=== PATIENT | male | born 1950 | race Caucasian/White ===

== ENCOUNTER 2024-09-23 12:36 | Outpatient (CLI) | payer OTHER, SELFPAY | END 2024-09-23 12:37 | disposition home or self-care (01) | LOC: WOUND 12:40 | PROVIDERS: PCP Family Medicine; Visit Provider Nurse Practitioner Family | DX: L73.9 Follicular disorder, unspecified (principal) | CPT/HCPCS: 87070; G0463 ==

== ENCOUNTER 2024-10-15 14:12 | Outpatient (CLI) | payer OTHER, SELFPAY | END 2024-10-15 14:13 | disposition home or self-care (01) | LOC: WOUND 14:12 | PROVIDERS: PCP Family Medicine; Visit Provider Nurse Practitioner Family | DX: L73.9 Follicular disorder, unspecified (principal) | CPT/HCPCS: G0463 ==